=== PATIENT | male | born 1970 | race Caucasian/White ===

== ENCOUNTER 2019-11-17 21:04 | Emergency (ER) | payer BC ==
[2019-11-17 21:12] VITALS: BP 153/87
[2019-11-17] MEDS ORDERED: MORPHINE SULFATE 10 MG/ML INJ IM ONE (21:49)
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
== END 2019-11-17 22:06 | disposition home or self-care (01) ==
LOC: ER 21:04
DX: L76.22 Postprocedural hemorrhage of skin and subcutaneous tissue following other procedure (principal); Z79.899 Other long term (current) drug therapy; Z87.891 Personal history of nicotine dependence; Z98.890 Other specified postprocedural states
CPT/HCPCS: 96372; 99284

== ENCOUNTER 2020-01-27 11:57 | Emergency (ER) | payer BC ==
[2020-01-27] MEDS ORDERED: OXYCODONE-ACETAMINOPHEN 5-325 MG TABLET PO ONE (12:13)
[2020-01-27 12:14] VITALS: BP 172/107
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
== END 2020-01-27 14:40 | disposition home or self-care (01) ==
LOC: ER 11:57
DX: S20.212A Contusion of left front wall of thorax, initial encounter (principal); S50.812A Abrasion of left forearm, initial encounter; R07.81 Pleurodynia; R07.89 Other chest pain; V28.0XXA Motorcycle driver injured in noncollision transport accident in nontraffic accident, initial encounter; Y92.481 Parking lot as the place of occurrence of the external cause
CPT/HCPCS: 99283